=== PATIENT | female | born 1995 | race Caucasian/White ===

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

== ENCOUNTER 2017-02-27 23:45 | Emergency (ER) | payer SELFPAY ==
[~2017-02-27] VITALS: Ht 165.1 cm; Wt 82.5 kg
[2017-02-28] MEDS ORDERED: SODIUM CHLORIDE 0.9% 1,000 ML IV ONE (01:52)
[2017-02-28] MEDS ORDERED: ONDANSETRON HCL 4MG/2ML VIAL IM ONE (02:00)
[2017-02-28 02:12] LABS: BASOPHILS % 0.6 % (0.0-2.0); EOSINOPHILS % 2.3 % (0.0-5.0); HEMATOCRIT. 37.8 % (36.0-48.0); HEMOGLOBIN. 13.2 g/dL (12.0-16.0); LYMPHOCYTES % 25.1 % (20.0-50.0); MEAN CORPUSCULAR HEMOGLOBIN 29.1 pg (28.0-32.0); MEAN CORPUSCULAR VOLUME 83.5 fL (81.0-99.0); MEAN PLATELET VOLUME 7.4 fl (7.4-10.4); PLATELET 279 x1000/uL (130-400); RED BLOOD CELL COUNT 4.53 mill/uL (4.2-5.4); RED CELL DISTRIBUTION WIDTH 13.2 % (11.6-14.6)
[2017-02-28 02:25] LABS: CARBON DIOXIDE 26 mEq/L (21-32); CHLORIDE 106 mEq/L (98-107)
[2017-02-28 02:35] LABS: CLARITY URINE CLEAR (CLEAR); COLOR URINE YELLOW (YELLOW); GLUCOSE URINE NEGATIVE (NEGATIVE); KETONES URINE NEGATIVE (NEGATIVE); LEUKOCYTE ESTERASE URINE NEGATIVE (NEGATIVE); NITRITE URINE NEGATIVE (NEGATIVE); OCCULT BLOOD URINE TRACE (NEGATIVE); PROTEIN URINE NEGATIVE (NEGATIVE); SPECIFIC GRAVITY URINE 1.028 (1.005-1.030); UROBILINOGEN URINE 0.2 E.U./dL (0.2-1.0)
[2017-02-28 02:43] LABS: B-HCG QUANTITATIVE < 1 mIU/mL (<3)
[2017-02-28 05:42] VITALS: BP 104/56
== END 2017-02-28 07:06 | disposition home or self-care (01) ==
LOC: ER 23:46
DX: E86.0 Dehydration (principal); R51 Headache
CPT/HCPCS: 36415; 80053; 81001; 84702; 85025; 96360; 96372; 99284; J2405; J7030; Z7610

== ENCOUNTER 2017-11-12 13:48 | Observation (INO) | payer MEDICAID ==
[~2017-11-12] VITALS: Ht 160 cm; Wt 93.0 kg
[2017-11-12] MEDS ORDERED: PNV1TABL76 PO (14:24)
== END 2017-11-12 15:45 | disposition home or self-care (01) ==
LOC: L&D 13:48
PROVIDERS: ADMIT Obstetrics & Gynecology; ATTEND Obstetrics & Gynecology
DX: O26.893 Other specified pregnancy related conditions, third trimester (principal); R10.9 Unspecified abdominal pain; R55 Syncope and collapse; Z3A.38 38 weeks gestation of pregnancy
CPT/HCPCS: 99281; G0378

== ENCOUNTER 2017-11-14 15:00 | Inpatient (IN) | payer MEDICAID ==
[~2017-11-14] VITALS: Ht 165.1 cm; Wt 102.1 kg
[~2017-11-14 15:00] MED LIST: PNV1TABL76 PO
[2017-11-14] MEDS ORDERED: DEXT 5%/LR + PITOCIN 20UNITS/L 1,000 ML IV SCH ×2 (15:36→20:38)
[2017-11-14] MEDS ORDERED: LIDOCAINE HCL 1% 20ML VIAL (Pyxis) INJ INFIL PRN (15:45)
[2017-11-14] MEDS ORDERED: METHYLERGONOVINE MALEATE 0.2 MG/ML IM PRN (15:45)
[2017-11-14] MEDS ORDERED: BUTORPHANOL TARTRATE 2 MG/ML VIAL IV PRN (15:45)
[2017-11-14] MEDS ORDERED: MISOPROSTOL 100MCG TABLET VG PRN (15:45)
[2017-11-14] MEDS ORDERED: NALOXONE HCL 0.4 MG/ML 1ML VIAL IM PRN (15:45)
[2017-11-14 15:50] LABS: CLARITY URINE CLEAR (CLEAR); COLOR URINE YELLOW (YELLOW); KETONES URINE 1+ (NEGATIVE); LEUKOCYTE ESTERASE URINE 1+ (NEGATIVE); NITRITE URINE NEGATIVE (NEGATIVE); OCCULT BLOOD URINE NEGATIVE (NEGATIVE); PH URINE 5.5 (4.5-8.0); PROTEIN URINE NEGATIVE (NEGATIVE); SPECIFIC GRAVITY URINE 1.021 (1.005-1.030); UROBILINOGEN URINE 0.2 E.U./dL (0.2-1.0)
[2017-11-14 15:51] LABS: HEMATOCRIT. 37.5 % (36.0-48.0); HEMOGLOBIN. 12.6 g/dL (12.0-16.0); MEAN CORPUSCULAR HEMOGLOBIN 27.2 pg (28.0-32.0); MEAN CORPUSCULAR VOLUME 80.8 fL (81.0-99.0); MEAN PLATELET VOLUME 7.9 fl (7.4-10.4); PLATELET 296 x1000/uL (130-400); RED BLOOD CELL COUNT 4.64 mill/uL (4.2-5.4); RED CELL DISTRIBUTION WIDTH 14.6 % (11.6-14.6)
[2017-11-14] MEDS: LACTATED RINGERS 1,000 ML IV SCH ×3 (15:51→19:46)
[2017-11-14 15:59] LABS: INR 1.1; PARTIAL THROMBOPLASTIN TIME 32.6 sec (23.4-31.0)
[2017-11-14] MEDS ORDERED: BUPIVACAINE HCL/PF 0.25% (2.5MG/ML) 10ML ONE ×3 (16:00→23:25)
[2017-11-14] MEDS ORDERED: FENTANYL CITRATE/PF 50MCG/ML 2ML VIAL ONE (16:00)
[2017-11-14] MEDS ORDERED: BUPIVACAINE HCL/NS/PF EPIDURAL 100 ML EP ONE ×2 (16:00→23:56)
[2017-11-14] MEDS ORDERED: PENICILLIN G POTASSIUM 5 MMU in DEXT 5% WATER 100 ML IV NR (16:00)
[2017-11-14 16:03] LABS: *AMPHETAMINES SCREEN URINE NEGATIVE (NEGATIVE); *BARBITURATES SCREEN URINE NEGATIVE (NEGATIVE); *BENZODIAZEPINES SCREEN URINE NEGATIVE (NEGATIVE); *COCAINE SCREEN URINE NEGATIVE (NEGATIVE); METHADONE URINE SCREEN NEGATIVE (NEGATIVE); OPIATES URINE SCREEN NEGATIVE (NEGATIVE)
[2017-11-14 16:04] LABS: CANNABINOID URINE SCREEN NEGATIVE (NEGATIVE); PHENCYCLIDINE URINE SCREEN NEGATIVE (NEGATIVE)
[2017-11-14 16:18] LABS: PLATELET ESTIMATE NORMAL
[2017-11-14 16:39] LABS: RUBELLA IGG 5.3 IU/mL (4.99-10)
[2017-11-14 16:40] LABS: HEPATITIS B SURFACE ANTIGEN NEGATIVE
[2017-11-14] MEDS ORDERED: PENICILLIN G POTASSIUM 2.5 MMU in DEXTROSE 5% WATER 50 ML IV SCH (22:00)
[2017-11-14] MEDS ORDERED: STERILE WATER FOR INJECTION 10ML VIAL ONE (23:26)
[2017-11-15] MEDS: LACTATED RINGERS 1,000 ML IV SCH (01:17)
[2017-11-15] MEDS ORDERED: LIDOCAINE HCL/PF 1% 10 MG/ML 5ML VIAL IJ PRN (05:08)
[2017-11-15] MEDS: DEXT 5%/LR + PITOCIN 20UNITS/L 1,000 ML IV SCH ×2 (05:26→07:19)
[2017-11-15] MEDS ORDERED: IBUPROFEN 400MG TABLET PO PRN (06:00)
[2017-11-15] MEDS ORDERED: METHYLERGONOVINE MALEATE 0.2 MG/ML IM PRN (06:00)
[2017-11-15] MEDS ORDERED: LANOLIN OINT 0.25 GM TUBE TOP PRN (06:00)
[2017-11-15] MEDS ORDERED: RHO(D) IMMUNE GLOBULIN 300 MCG/SYR IM PRN (06:00)
[2017-11-15] MEDS: PRENATAL VIT/FE FUMARATE/FA TABLET PO SCH (08:49)
[2017-11-15 08:53] VITALS: BP 109/59
[2017-11-15] MEDS: IBUPROFEN 800MG TABLET PO PRN (12:57)
[2017-11-15 15:58] VITALS: BP 109/64
[2017-11-15] MEDS ORDERED: TETANUS, DIPHTHERIA, PERTUSSIS VAC/PF 0.5ML (>7YR OLD) IM ONE (21:00)
[2017-11-16 00:10] VITALS: BP 104/63
[2017-11-16 06:57] LABS: BASOPHILS % 0.4 % (0.0-2.0); EOSINOPHILS % 2.7 % (0.0-5.0); HEMOGLOBIN. 9.5 g/dL (12.0-16.0); LYMPHOCYTES % 16.2 % (20.0-50.0); MEAN CORPUSCULAR HEMOGLOBIN 27.5 pg (28.0-32.0); MEAN PLATELET VOLUME 8.1 fl (7.4-10.4); MONOCYTES % 6.8 % (2.0-8.0); NEUTROPHILS % 73.9 % (40.0-76.0); PLATELET 223 x1000/uL (130-400); RED BLOOD CELL COUNT 3.46 mill/uL (4.2-5.4); RED CELL DISTRIBUTION WIDTH 14.5 % (11.6-14.6)
[2017-11-16 09:00] VITALS: BP 112/62
[2017-11-16] MEDS: PRENATAL VIT/FE FUMARATE/FA TABLET PO SCH (10:41)
[2017-11-16 17:00] VITALS: BP 108/61
[2017-11-16] MEDS: IBUPROFEN 800MG TABLET PO PRN (19:52)
[2017-11-17 07:35] VITALS: BP 96/56
[2017-11-17] MEDS: PRENATAL VIT/FE FUMARATE/FA TABLET PO SCH (08:08)
== END 2017-11-17 11:20 | disposition home or self-care (01) | DRG 560 ==
LOC: OBSVTOIN 15:00 → L&D 15:00 → 7EST PP/OB 11-15 08:06
PROVIDERS: ADMIT Obstetrics & Gynecology; ATTEND Obstetrics & Gynecology
PROC: 3E0R3BZ Introduction of Anesthetic Agent into Spinal Canal, Percutaneous Approach (ICD-10-PCS; 2017-11-15)
PROC: 00HU33Z Insertion of Infusion Device into Spinal Canal, Percutaneous Approach (ICD-10-PCS; 2017-11-15)
PROC: 10E0XZZ Delivery of Products of Conception, External Approach (ICD-10-PCS; principal; 2017-11-15 05:26)
DX: O24.429 Gestational diabetes mellitus in childbirth, unspecified control (principal); D62 Acute posthemorrhagic anemia; O99.02 Anemia complicating childbirth; Z3A.39 39 weeks gestation of pregnancy; Z37.0 Single live birth
CPT/HCPCS: 36415; 80305; 81003; 82962; 85025; 85610; 85730; 86592; 86703; 86762; 86850; 86900; 87340; 99281; A4216; J2540; J2590; J3010; J3490; J7060; J7120; A4315